=== PATIENT | male | born 1940 | race Caucasian/White ===

== ENCOUNTER 2017-02-21 09:08 | Emergency (ER) | payer OTHER ==
[~2017-02-21] VITALS: Ht 182.9 cm; Wt 73.5 kg
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
[~2017-02-21 09:08] MED LIST: ASPIRIN; ASPIRIN EC81 M1 PO; ASPIRIN81 M2 PO; ATENOLOL; ATENOLOL25 MG PO; BENAZEPRIL HCL40 MG PO; BRILINTA90 MG PO; CRESTOR; HYDROCHLOROTH12.5 MG PO; IMDUR; IPRATR-ALBUTEROL3 ML INH; KEFLEX250 M2 PO; LOTENSIN40 MG PO; LOTREL; LOTREL 10/20 MG1 CAP; MIRALAX17 GM PO; NEXIUM; OMEPRAZOLE20 M2 PO; PANTOPRAZOLE SO40 MG PO; PLAVIX; PRAVACHOL80 MG PO; PRAVASTATIN SOD80 MG PO; PREDNISONE10 MG/DOSE PO; PRILOSEC20 MG PO; PROAIR HFA8.5 GM INH; SENOKOT S1 TA1 PO; TAMSULOSIN HCL0.4 MG PO; TENORMIN25 M1 PO; ZITHROMAX1 G/PKT PO
== END 2017-02-21 11:43 | disposition home or self-care (01) ==
LOC: CED 09:08
DX: S82.54XA Nondisplaced fracture of medial malleolus of right tibia, initial encounter for closed fracture (principal); S80.01XA Contusion of right knee, initial encounter; I11.9 Hypertensive heart disease without heart failure; I51.9 Heart disease, unspecified; E78.5 Hyperlipidemia, unspecified; F17.210 Nicotine dependence, cigarettes, uncomplicated; Z88.5 Allergy status to narcotic agent; W22.8XXA Striking against or struck by other objects, initial encounter; Y92.009 Unspecified place in unspecified non-institutional (private) residence as the place of occurrence of the external cause
CPT/HCPCS: 29540; 73560; 73610; 99283